=== PATIENT | male | born 1945 | race Caucasian/White ===

== ENCOUNTER 2022-05-04 17:01 | Observation (INO) ==
[2022-05-04 22:52] LABS: Basophils % 0.1 %; Hematocrit 38.3 % (37.5-50.1); Hemoglobin 12.5 g/dL (12.9-16.9); Immature Granulocytes % 0.4 % (0-4); Lymphocytes # 0.9 K/mcL (0.6-4.6); Lymphocytes % 10.9 %; Mean Corpuscular HGB Conc 32.6 g/dL (31.6-35.5); Mean Corpuscular Hemoglobin 30.3 pg (28.0-33.3); Mean Corpuscular Volume 92.7 fL (83.0-100.0); Mean Platelet Volume 8.7 fL (9.4-12.4); Monocytes # 0.1 K/mcL (0.0-1.3); Monocytes % 1.6 %; Platelet Count 100 K/mcL (140-400); Red Blood Count 4.13 M/mcL (4.19-5.50); Red Cell Distribution Width 14.4 % (11.5-14.5)
[2022-05-04 22:53] LABS: Amorphous Sediment,Urine Few per hpf (None-Few); Bacteria,Urine Few per hpf (None-Few); Bilirubin,Urine Negative (Negative); Blood,Urine Trace (Negative); Clarity,Urine Turbid (Clear); Color,Urine Yellow (Yellow); Glucose,Urine (UA) >=1000 mg/dL (Normal); Ketones,Urine Negative (Negative); Leukocyte Esterase,Urine Large (Negative); Mucus,Urine Few per lpf (None-Few); Nitrite,Urine Negative (Negative); Protein,Urine Trace mg/dL (Neg-Trace); RBC,Urine 0-3 per hpf (0-3); Specific Gravity,Urine 1.016 (1.010-1.025); Squamous Epithelial Cell,Urine Few per hpf (None-Few); Urobilinogen,Urine Normal (Normal); WBC,Urine 50-100 per hpf (0-3)
[2022-05-04] MEDS ORDERED: cefTRIAXone 1,000 MG in 0.9 % Sodium Chloride 10 ML IVP ONE (23:00)
[2022-05-04 23:21] LABS: BUN/Creatinine Ratio 20 (6-26); Blood Urea Nitrogen 33 mg/dL (8-23); Calcium 8.6 mg/dL (8.6-10.3); Carbon Dioxide 23 mEq/L (23-29); Chloride 101 mEq/L (98-107); Glucose 515 mg/dL (70-105); Osmolality,Calculated 306 (280-300); Potassium 4.1 mEq/L (3.5-5.1); Sodium 133 mEq/L (136-145); Troponin I < 0.03 ng/mL (< 0.04)
[2022-05-05 00:14] LABS: VBG HCO3 27 mEq/L (21-27); VBG PCO2 48 mmHg (41-51); VBG PH 7.35 pH Units (7.32-7.42); VBG PO2 43 mmHg (25-50)
[2022-05-05] MEDS ORDERED: Iopamidol - 370 500 ML MLS IVP ONE (00:27)
[2022-05-05] MEDS ORDERED: Naloxone 0.4 MG/ML INJ IVP PRN (02:34)
[2022-05-05] MEDS ORDERED: Acetaminophen 325 MG TABLET PO PRN (02:34)
[2022-05-05] MEDS ORDERED: Ipratropium/Albuterol Neb 3 ML IH ONE (02:36)
[2022-05-05] MEDS ORDERED: Furosemide 40 MG/4 ML VIAL IVP ONE (02:36)
[2022-05-05] MEDS ORDERED: Ipratropium/Albuterol Neb 3 ML IH PRN (02:37)
[2022-05-05] MEDS ORDERED: D5% in Water 1,000 ML IVC PRN (02:38)
[2022-05-05] MEDS ORDERED: *HR* Dextrose 50 % in Water (Syg) 50 ML SYRINGE IVP PRN (02:38)
[2022-05-05] MEDS ORDERED: Dextrose Gel 15 GM/37.5 ML TUBE PO PRN ×2 (02:38)
[2022-05-05] MEDS ORDERED: cefTRIAXone 1,000 MG in Water for inj. (sterile) 10 ML IVP ONE (03:24)
[2022-05-05 06:52] LABS: Hematocrit 36.1 % (37.5-50.1); Hemoglobin 11.9 g/dL (12.9-16.9); Mean Corpuscular Hemoglobin 30.3 pg (28.0-33.3); Mean Corpuscular Volume 91.9 fL (83.0-100.0); Mean Platelet Volume 8.9 fL (9.4-12.4); Platelet Count 97 K/mcL (140-400); Red Blood Count 3.93 M/mcL (4.19-5.50); Red Cell Distribution Width 13.9 % (11.5-14.5); White Blood Count 6.7 K/mcL (4.3-11.1)
[2022-05-05] MEDS: Insulin LISPRO 300 UNITS/3 ML VIAL SUBQ SCH ×5 (07:01→20:55)
[2022-05-05 07:15] LABS: Calcium 8.7 mg/dL (8.6-10.3); Magnesium 2.1 mg/dL (1.6-2.6); Phosphorous 2.1 mg/dL (2.7-4.5); Potassium 3.5 mEq/L (3.5-5.1)
[2022-05-05 07:41] LABS: Influenza A PCR Negative (Negative); Influenza B PCR Negative (Negative); Resp. Syncytial Virus PCR Negative (Negative)
[2022-05-05 08:15] LABS: SARS-CoV-2 by PCR (In House) Negative (Negative)
[2022-05-05] MEDS: Melatonin 3 MG TABLET PO PRN (20:49)
[2022-05-05] MEDS: Ondansetron ODT 4 MG TAB.RAPDIS SL PRN (21:14)
[2022-05-06 01:57] LABS: Basophils % 0.1 %; Eosinophils % 0.2 %; Hematocrit 35.6 % (37.5-50.1); Hemoglobin 11.8 g/dL (12.9-16.9); Immature Granulocytes % 0.7 % (0-4); Lymphocytes % 12.6 %; Mean Corpuscular HGB Conc 33.1 g/dL (31.6-35.5); Mean Corpuscular Hemoglobin 30.6 pg (28.0-33.3); Mean Corpuscular Volume 92.2 fL (83.0-100.0); Monocytes # 0.4 K/mcL (0.0-1.3); Monocytes % 4.5 %; Neutrophils # 6.6 K/mcL (1.6-8.9); Platelet Count 105 K/mcL (140-400); Red Blood Count 3.86 M/mcL (4.19-5.50); Red Cell Distribution Width 13.9 % (11.5-14.5); Segmented Neutrophils % 81.9 %
[2022-05-06 03:16] LABS: Calcium 9.1 mg/dL (8.6-10.3); Potassium 3.9 mEq/L (3.5-5.1)
[2022-05-06] MEDS: Insulin LISPRO 300 UNITS/3 ML VIAL SUBQ SCH ×4 (10:11→21:20)
[2022-05-06] MEDS: cefTRIAXone 2,000 MG in 0.9 % Sodium Chloride 20 ML IVP SCH (10:12)
[2022-05-06] MEDS: Ondansetron ODT 4 MG TAB.RAPDIS SL PRN (12:14)
[2022-05-06] MEDS ORDERED: *HR* Promethazine 25 MG/ML VIAL IM ONE (13:36)
[2022-05-06] MEDS ORDERED: Potassium Phosphate 44 MEQ in 0.9 % Sodium Chloride 250 ML IVPB ONE (14:57)
[2022-05-06] MEDS: Metoclopramide 10 MG/2 ML VIAL IVP PRN ×2 (15:22→23:01)
[2022-05-06] MEDS ORDERED: Sennosides 8.6 MG TABLET PO ONE (15:30)
[2022-05-06] MEDS ORDERED: Insulin DETEMIR 100 UNIT/ML X5UNITS SUBQ SCH (16:00)
[2022-05-06] MEDS: Furosemide 40 MG TABLET PO SCH (16:16)
[2022-05-06] MEDS ORDERED: Gabapentin 300 MG CAPSULE PO SCH (21:00)
[2022-05-06] MEDS: Carbidopa/Levodopa 25/100 TABLET PO SCH (21:20)
[2022-05-06] MEDS: Melatonin 3 MG TABLET PO PRN (21:21)
[2022-05-07 02:06] LABS: Basophils % 0.1 %; Eosinophils % 0.3 %; Hemoglobin 12.1 g/dL (12.9-16.9); Immature Granulocytes % 0.4 % (0-4); Lymphocytes # 1.2 K/mcL (0.6-4.6); Lymphocytes % 15.3 %; Mean Corpuscular HGB Conc 33.6 g/dL (31.6-35.5); Mean Corpuscular Hemoglobin 30.6 pg (28.0-33.3); Mean Corpuscular Volume 91.1 fL (83.0-100.0); Mean Platelet Volume 8.8 fL (9.4-12.4); Monocytes # 0.4 K/mcL (0.0-1.3); Monocytes % 5.3 %; Neutrophils # 6.1 K/mcL (1.6-8.9); Platelet Count 118 K/mcL (140-400); Red Blood Count 3.95 M/mcL (4.19-5.50); Red Cell Distribution Width 13.4 % (11.5-14.5); Segmented Neutrophils % 78.6 %; White Blood Count 7.8 K/mcL (4.3-11.1)
[2022-05-07 02:22] LABS: Calcium 9.3 mg/dL (8.6-10.3); Potassium 3.5 mEq/L (3.5-5.1)
[2022-05-07 03:33] VITALS: TEMP 97.5
[2022-05-07] MEDS ORDERED: Gabapentin 300 MG CAPSULE PO SCH (08:00)
[2022-05-07 08:18] VITALS: BP 157/75; PULSE 76
[2022-05-07] MEDS: cefTRIAXone 2,000 MG in 0.9 % Sodium Chloride 20 ML IVP SCH (08:20)
[2022-05-07] MEDS: Insulin LISPRO 300 UNITS/3 ML VIAL SUBQ SCH (08:20)
[2022-05-07] MEDS: Furosemide 40 MG TABLET PO SCH (08:20)
[2022-05-07] MEDS: Carbidopa/Levodopa 25/100 TABLET PO SCH (08:20)
[2022-05-07] MEDS ORDERED: Aspirin Enteric Coated 81 MG Tablet PO SCH (09:00)
[2022-05-07] MEDS ORDERED: Cholecalciferol (D-3) 1,000 UNIT (25MCG) TABLET PO SCH (09:00)
[2022-05-07 09:41] VITALS: O2SAT 95
[2022-05-07] MEDS ORDERED: Tiotropium 10 INH DOSE IH SCH (10:00)
[2022-05-07] MEDS ORDERED: Sennosides 8.6 MG TABLET PO ONE (15:02)
== END 2022-05-07 11:26 | disposition home or self-care (01) ==
LOC: 2ANU 17:01 → EMEROOARM 17:01 → SUATTDRO 05-05 13:02 → 2ANU 05-05 15:09
PROVIDERS: ADMIT Internal Medicine; ATTEND Internal Medicine